=== PATIENT | female | born 1965 | race Caucasian/White ===

== ENCOUNTER 2019-06-30 11:00 | Day surgery (SDC) | payer OTHER ==
[~2019-06-30] VITALS: Ht 180.3 cm; Wt 105.2 kg
[2019-06-30] MEDS ORDERED: LR 1,000 ML IV.SOLN IV ONE (11:30)
[2019-06-30] MEDS ORDERED: NS IRRIG SOLN 1000 ML IR ONE (11:30)
[2019-06-30] MEDS ORDERED: ROCURONIUM BROMIDE 10 MG/ML (ZEMURON) IV ONE (11:30)
[2019-06-30] MEDS ORDERED: KETOROLAC TROMETHAMINE 30 MG VIAL IVP ONE (11:30)
[2019-06-30] MEDS ORDERED: DEXAMETHASONE SOD PHOSPHATE 4 MG/ML VIAL IVP ONE (11:30)
[2019-06-30] MEDS ORDERED: METOCLOPRAMIDE HCL 10 MG/2 ML VIAL IVP ONE (11:30)
[2019-06-30] MEDS ORDERED: fentaNYL CITRATE 250 MCG/5 ML AMP IV ONE (11:30)
[2019-06-30] MEDS ORDERED: MIDAZOLAM HCL 5 MG/5 ML VIAL IVP ONE (11:30)
[2019-06-30] MEDS ORDERED: FAMOTIDINE PF 20 MG/2 ML VIAL IVP ONE (11:30)
[2019-06-30] MEDS ORDERED: PROPOFOL 200MG/ 20ML VIAL (DIPRIVAN) IV ONE (11:30)
[2019-06-30] MEDS ORDERED: SEVOFLURANE 15 MIN GAS INH ONE (11:30)
== END 2019-06-30 17:45 | disposition still patient (30) ==
LOC: SDS 11:00
PROVIDERS: ATTEND Otolaryngology
DX: J34.89 Other specified disorders of nose and nasal sinuses (principal); J33.8 Other polyp of sinus; J34.2 Deviated nasal septum; E03.9 Hypothyroidism, unspecified; I10 Essential (primary) hypertension; H68.101 Unspecified obstruction of Eustachian tube, right ear; J32.9 Chronic sinusitis, unspecified; E66.01 Morbid (severe) obesity due to excess calories; F32.9 Major depressive disorder, single episode, unspecified; Z83.3 Family history of diabetes mellitus; Z90.89 Acquired absence of other organs; Z90.49 Acquired absence of other specified parts of digestive tract
CPT/HCPCS: 88304; 88305; 88311; J1100; J1885; J2250; J2704; J2765; J3010; J3490; J7120